=== PATIENT | male | born 1965 | race Caucasian/White ===

== ENCOUNTER 2025-03-26 05:24 | Emergency (ER) | payer OTHER, SELFPAY ==
[2025-03-26 05:25] VITALS: BMI 29.0
[2025-03-26 05:27] VITALS: BP 162/100
[2025-03-26 05:59] LABS: % Basophils 0.3 % (0-2); % Eosinophils 1.5 % (0-6); % Immature Granulocytes 0.2 % (0-0.5); % Lymphocytes 21.1 % (20.5-51.1); % Monocytes 6.3 % (1.7-9.3); % Neutrophils 70.6 % (42.2-75.2); Absolute Eosinophils 0.1 10^3/uL (0-0.7); Absolute Monocytes 0.6 10^3/uL (0.1-0.6); Absolute Neutrophils 6.7 10^3/uL (1.4-6.5); Hematocrit 44.2 % (39.0-52.0); Hemoglobin 15.5 g/dL (13.0-18.0); Mean Corp Hgb Conc. 35.1 g/dL (33.0-37.0); Mean Corpuscular Hgb 30.1 pg (27.0-31.0); Mean Corpuscular Volume 85.8 fL (80.0-94.0); Mean Platelet Volume 10.9 fL (7.4-10.4); Nucleated Red Blood Cells % 0 % (-); Platelet Count 190 10^3/uL (130-400); Red Blood Cell Count 5.15 10^6/uL (4.70-6.10); Red Cell Dist. Width 13.1 % (11.5-14.5); White Blood Cell Count 9.5 10^3/uL (4.8-10.8)
[2025-03-26 06:11] LABS: ALT (SGPT) 23 U/L (0-50); AST (SGOT) 21 U/L (17-59); Albumin 4.2 g/dl (3.5-5.0); Alkaline Phosphatase 118 U/L (38-126); Blood Urea Nitrogen 23 mg/dl (9-20); Calcium 9.6 mg/dl (8.4-10.2); Carbon Dioxide 24 mmol/L (22-30); Chloride 109 mmol/L (98-107); Glucose 132 mg/dl (70-99); Potassium 4.6 mmol/L (3.5-5.1); Sodium 141 mmol/L (135-145); Total Bilirubin 0.6 mg/dl (0.2-1.3); eGFR > 60.00
[2025-03-26 06:15] LABS: Troponin I < 0.012 ng/ml
[2025-03-26 06:18] VITALS: BP 160/99
[2025-03-26 07:00] VITALS: BP 145/101
--- NOTE | 2025-03-26 07:24 | ED.GENMED ---
History of Present Illness
General
Chief Complaint: Chest Problem
Source: patient
Exam Limitations: none
Time Seen by Provider: 03/26/25 07:23
History of Present Illness
History of Present Illness:
59yoM with no significant past medical history presenting with his for evaluation of chest pain. Symptoms initially began 2 days ago with a mild pinching pain in his left lower chest. He had some discomfort yesterday which went away. He woke
up this morning with worsening pain. Pain feels like a muscle spasm. Pain is worse with deep breathing as well as movement. states that patient had significant pain while in the car going over bumps in the road. Pain intermittently radiates
to the left shoulder and back. He has not taken anything [id number] for his symptoms. He is otherwise asymptomatic and denies any cough, vomiting, fevers, abdominal pain. No reported trauma.
Past History
Past History
ED Past Medical History: None
ED Past Surgical History: None
Social History
Tobacco: Non-smoker
Phy Exam
General Physical Exam
General Presentation: well appearing and no apparent distress
General age: appears stated age
General Skin: warm and dry
General Habitus: normal
General Mental: alert
ENT Exam
ENT Exam: normocephalic
Cardiovascular Exam
Cardiovascular Exam: regular rate/rhythm, no edema and no murmur
Pulmonary Exam
Pulmonary Exam: lungs clear, no respiratory distress, no rales, no crackles, no rhonchi, no wheezing and other (+Tenderness to L anterior lower chest wall. No skin changes.)
Gastrointestinal Exam
Gastrointestinal Exam: non tender, soft and non distended
Neurological Exam
Neurological Exam: alert
Iker Coma Scale
Eye Opening: Spontaneous
Verbal Response: Oriented
Motor Response: Obeys Commands
GCS Total Score: 15
Skin Exam
Skin Exam: normal color and warm/dry
Psychiatric Exam
Psychiatric Exam: normal mood/affect
Course
Orders/Labs/Results
Orders:
Orders
03/26/25 05:30
Electrocardiogram (*1) Urgent
Reason for Study: Chest Pain
EKG- Treatment ONCE
03/26/25 05:41
Complete Blood Count/With Diff Urgent
Comprehensive Metabolic Panel Urgent
Troponin I Urgent
03/26/25 07:31
Ketorolac [Toradol] 15 mg IV NOW STA
03/26/25 07:58
D-Dimer Urgent
03/26/25 09:03
CR Ribs-left 3 Vw W/pa Chest Urgent
Comment:
Reason For Exam: L chest pain
03/26/25 09:31
Ketorolac [Toradol] 15 mg IV NOW STA
Abnormal Lab Results
03/26/25
05:41
MPV 10.9 H fL
(7.4-10.4)
Absolute Neuts (auto) 6.7 H 10^3/uL
(1.4-6.5)
Chloride 109 H mmol/L
(98-107)
BUN 23 H mg/dl
(9-20)
Glucose 132 H mg/dl
(70-99)
03/26/25 05:41
03/26/25 05:41
Vital Signs
Initial and Last Documented VS:
Initial Vital Signs
Temp Pulse Resp BP Pulse Ox
99.0 F 78 16 162/100 95
03/26/25 05:27 03/26/25 05:27 03/26/25 05:27 03/26/25 05:27 03/26/25 05:27
Last Documented Vital Signs
Temp Pulse Resp BP Pulse Ox
99.0 F 77 18 148/94 96
03/26/25 05:27 03/26/25 09:00 03/26/25 09:00 03/26/25 09:00 03/26/25 09:30
MDM/Problems Addressed
Differential Diagnosis Includes:
59yoM here with pleuritic L chest pain x 2 days. Worsening since this morning. No trauma. No cough/vomiting. He is hypertensive with otherwise stable vital signs. He is well appearing in no acute distress. There is reproducible chest wall tenderness
on exam. Differential diagnosis includes but is not limited to: musculoskeletal, pleurisy, pneumonia, pneumothorax, PE
Initial ED plan: Cardiac labs and EKG obtained in triage. EKG shows NSR without ischemic changes and troponin WNL. Will add on D-dimer and CXR vs. CT depending on D-dimer results. IV Toradol for pain.
*EKG
Interpreted by ED Provider?: Yes
EKG Intrepretation Date: 03/26/25
Heart Rate: 75
Rate: normal
Rhythm: sinus
[place]: normal axis
Interval: normal interval
QRS Pattern: normal QRS
Ischemia: no ischemia
*Critical Care Note
Total Time (30-74mins, 75-104mins- exclusive of procedures): Not Applicable
Update Note
Update Note:
D-dimer normal making PE very unlikely. CXR is clear. Given reproducible tenderness, suspect musculoskeletal pain. Supportive care discussed. Advised close f/u with PCP and ED return precautions reviewed. Patient in agreement with plan and was
discharged in stable condition.
ED Attending Note
-
Portions of this chart may have been created with voice recognition software.� Occasional wrong word or��sound alike� substitutions may have occurred due to the inherent limitations of voice recognition software.
Discharge Plan
Departure
Patient Disposition: Home (Routine Discharge)
Date of Disposition: 03/26/25
Time of Disposition: 09:31
Patient with high blood pressure during this ER visit?: Yes
Discharge Problem:
Chest wall pain
Instructions: Costochondritis
Prescriptions:
No Action
No Current Medications
0
Referrals:
Charli,Anthony J., DO [Family Provider] -
Activity Restrictions/Additional Instructions:
Apply heat to affected area. Take Tylenol and ibuprofen for pain.
Please follow-up with your family doctor this week. Return to the ER with any new or worsening symptoms.
Interventions
Interventions:
*Risk Screen - Suicide Last Done: 03/26/25 05:27
*General Assessment Last Done: 03/26/25 05:27
*Neglect/Abuse Screening Last Done: 03/26/25 05:27
*ED- Fall Risk Assessment Last Done: 03/26/25 06:26
*ED COVID-19 Vaccine History Last Done: 03/26/25 06:26
*Nursing Disposition Last Done: 03/26/25 10:14
ED- Cardiac Assessment Last Done: 03/26/25 06:26
ED- Pulmonary Assessment Last Done: 03/26/25 06:26
Discharge Date and Time
Discharge Date/Time: 03/26/25 10:14
Print Language: IRANIAN
[2025-03-26] MEDS: TORADOL 15 MG IV ×2 (07:53→10:08)
[2025-03-26 08:25] VITALS: BP 147/93
[2025-03-26 08:57] LABS: D-Dimer < 0.27 ug/mlFEU (0.00-0.50)
[2025-03-26 09:00] VITALS: BP 148/94
== END 2025-03-26 10:14 | disposition home or self-care (01) ==
LOC: EMR 05:24
PROVIDERS: Emergency Medicine; Physician Assistant; EMERGENCY PHYSICIAN Emergency Medicine; FAMILY PHYSICIAN Family Medicine
DX: R07.1 Chest pain on breathing (principal); M25.512 Pain in left shoulder; M54.9 Dorsalgia, unspecified; Z91.048 Other nonmedicinal substance allergy status
CPT/HCPCS: 99284; 96374; 96376; 71101; 80053; 84484; 85025; 85379; 93005